=== PATIENT | female | born 1995 | race Asian ===

== ENCOUNTER 2016-10-17 10:28 | Outpatient (CLI) | payer MEDICAID ==
[~2016-10-17] VITALS: Ht 157.5 cm; Wt 73.6 kg
[~2016-10-17 10:28] MED LIST: ACET650S21 PO; DOCU-30 PO; IBUP-1222 PO; NORE0.354 PO; PREN1TAB69 PO
[2016-10-17 10:46] VITALS: BP 108/64
[2016-10-17 12:24] LABS: DAU SCREEN DISCLAIMER
== END 2016-10-17 12:20 | disposition home or self-care (01) ==
LOC: LDOP 10:28
PROVIDERS: ATTEND Student in an Organized Health Care Education/Training Program
DX: O26.893 Other specified pregnancy related conditions, third trimester (principal); O99.333 Smoking (tobacco) complicating pregnancy, third trimester; F17.200 Nicotine dependence, unspecified, uncomplicated; R10.9 Unspecified abdominal pain; Z3A.33 33 weeks gestation of pregnancy
CPT/HCPCS: 59025; 80307; 99201; 99211; G0463

== ENCOUNTER 2016-11-24 09:08 | Inpatient (IN) | payer MEDICAID ==
[~2016-11-24] VITALS: Ht 157.5 cm; Wt 74.1 kg
[~2016-11-24 09:08] MED LIST changes: +DOCU-131 PO; -DOCU-30 PO
[2016-11-24] MEDS ORDERED: NEWBORN KIT ONE (09:24)
[2016-11-24] MEDS ORDERED: FENTANYL PF 100 MCG/2ML ONE ×2 (09:25→10:42)
[2016-11-24] MEDS ORDERED: OXYTOCIN 30U/ 0.9% NaCL 500ML 500 ML ONE (09:25)
[2016-11-24] MEDS ORDERED: OXYTOCIN 30U/ 0.9% NaCL 500ML 500 ML IV ONE (09:34)
[2016-11-24] MEDS ORDERED: LACTATED RINGERS 1,000 ML IV SCH (09:34)
[2016-11-24] MEDS ORDERED: D5%-LACTATED RINGERS 1,000 ML IV SCH (09:34)
[2016-11-24 09:38] VITALS: BP 107/59
[2016-11-24] MEDS: FENTANYL PF 100 MCG/2ML IVPush PRN ×2 (09:53→10:49)
[2016-11-24] MEDS ORDERED: FENTANYL PF 100 MCG/2ML IV PRN (10:00)
[2016-11-24] MEDS ORDERED: ONDANSETRON 2MG/ML, 2ML IVPush PRN (10:00)
[2016-11-24 10:18] LABS: HEMATOCRIT 38.7 % (34.6-47.8); HEMOGLOBIN 12.8 g/dL (11.7-16.4); WHITE BLOOD COUNT 14.2 x10^3/uL (3.4-10)
[2016-11-24] MEDS ORDERED: PLEASE ENTER HEIGHT AND WEIGHT MC SCH (10:30)
[2016-11-24 12:59] LABS: HIV 1&2 ANTIBODY SCREEN Nonreactive (Nonreactive); HIV-1 p24 ANTIGEN Nonreactive (Nonreactive)
[2016-11-24] MEDS: OXYTOCIN 30U/ 0.9% NaCL 500ML 500 ML IV SCH ×4 (13:25→23:25)
[2016-11-24] MEDS ORDERED: OXYTOCIN 10 UNITS/ML, 1ML IM PRN (13:30)
[2016-11-24] MEDS ORDERED: METHYLERGONOVINE 0.2 MG/ML IM PRN (13:30)
[2016-11-24] MEDS ORDERED: ONDANSETRON 2MG/ML, 2ML IV PRN (13:30)
[2016-11-24] MEDS ORDERED: MISOPROSTOL 200 MCG TABLET PR PRN (13:30)
[2016-11-24] MEDS ORDERED: HYDROcodone/APAP 5/325 TABLET ONE (14:20)
[2016-11-24] MEDS: HYDROcodone/APAP 5/325 TABLET PO PRN ×2 (14:26→21:43)
[2016-11-24 15:00] VITALS: BP 115/65
[2016-11-24 19:54] LABS: HEMATOCRIT 35.4 % (34.6-47.8); HEMOGLOBIN 11.8 g/dL (11.7-16.4); WHITE BLOOD COUNT 15.5 x10^3/uL (3.4-10)
[2016-11-24 21:04] VITALS: BP 119/60
[2016-11-24] MEDS: DOCUSATE 100 MG CAPSULE PO PRN (21:43)
[2016-11-25 00:36] VITALS: BP 130/68
[2016-11-25 04:50] VITALS: BP 120/71
[2016-11-25 07:45] VITALS: BP 112/70
[2016-11-25] MEDS ORDERED: PRENATAL VIT/IRON/FA 1 EACH TABLET ONE (07:58)
[2016-11-25] MEDS: IBUPROFEN 600 MG TABLET PO PRN ×2 (08:05→16:23)
[2016-11-25] MEDS: HYDROcodone/APAP 5/325 TABLET PO PRN ×2 (08:05→16:23)
[2016-11-25] MEDS ORDERED: PRENATAL VIT/IRON/FA 1 EACH TABLET PO SCH (09:00)
[2016-11-25] MEDS: PRENATAL VIT/IRON/FA 1 EACH TABLET PO SCH (09:00)
[2016-11-25] MEDS: OXYTOCIN 30U/ 0.9% NaCL 500ML 500 ML IV SCH ×2 (09:25)
[2016-11-25 12:00] VITALS: BP 114/67
[2016-11-25 16:00] VITALS: BP 108/62
[2016-11-25 19:45] VITALS: BP 109/72
[2016-11-26] MEDS: HYDROcodone/APAP 5/325 TABLET PO PRN (06:29)
[2016-11-26] MEDS: IBUPROFEN 600 MG TABLET PO PRN (06:29)
[2016-11-26 07:35] VITALS: BP 107/69
[2016-11-26] MEDS: PRENATAL VIT/IRON/FA 1 EACH TABLET PO SCH (08:45)
[2016-11-26] MEDS: DOCUSATE 100 MG CAPSULE PO PRN (08:45)
== END 2016-11-26 16:06 | disposition home or self-care (01) | DRG 775 ==
LOC: LDOP 09:08 → LDIP 09:34 → 2NW 15:04
PROVIDERS: ADMIT Student in an Organized Health Care Education/Training Program; ATTEND Student in an Organized Health Care Education/Training Program
PROC: 10E0XZZ Delivery of Products of Conception, External Approach (ICD-10-PCS; principal; 2016-11-24)
DX: O80 Encounter for full-term uncomplicated delivery (principal); Z37.0 Single live birth; Z3A.39 39 weeks gestation of pregnancy
CPT/HCPCS: 36415; 85025; 86592; 86703; 86762; 86850; 86900; 87081; 87340; 87899; J3010; G0435; J2590

== ENCOUNTER 2017-06-22 13:50 | Emergency (ER) | payer MEDICAID ==
[~2017-06-22] VITALS: Ht 157.5 cm; Wt 88.3 kg
[~2017-06-22 13:50] MED LIST changes: +NORE0.3535 PO; -NORE0.354 PO
[2017-06-22 15:03] LABS: BASOPHILS # (AUTO) 0.04 x10^3/uL (0-0.1); BASOPHILS % (AUTO) 0 % (0-1); EOSINOPHILS # (AUTO) 0.25 x10^3/uL (0-0.4); EOSINOPHILS % (AUTO) 2 % (1-7); LYMPHOCYTES % (AUTO) 19 % (22-44); MD NO; MEAN CORPUSCULAR HEMOGLOBIN 30.2 pg (27.0-34.8); MEAN CORPUSCULAR HGB CONC 33.5 g/dL (32.4-35.8); MONOCYTES # (AUTO) 0.71 x10^3/uL (0.2-0.8); MONOCYTES % (AUTO) 5 % (2-9); NEUTROPHILS # (AUTO) 9.72 x10^3/uL (1.8-6.8); NEUTROPHILS % (AUTO) 74 % (42-75); PLATELET COUNT 178 x10^3/uL (130-400); RED BLOOD COUNT 4.89 x10^6/uL (3.82-5.3); RED CELL DISTRIBUTION WIDTH 13.4 % (9.6-15.2)
[2017-06-22 15:16] LABS: ALBUMIN 2.8 g/dL (3.4-5.0); ANION GAP 9 mmol/L (5-15); CALCIUM 8.7 mg/dL (8.5-10.1); CHLORIDE 109 mmol/L (98-107); CREATININE 0.56 mg/dL (0.55-1.02)
[2017-06-22 16:09] LABS: CULTURE INDICATED? YES; MICROSCOPIC INDICATED
[2017-06-22 17:01] VITALS: BP 123/64
== END 2017-06-22 17:03 | disposition home or self-care (01) ==
LOC: ED 16:54
DX: O26.892 Other specified pregnancy related conditions, second trimester (principal); R10.30 Lower abdominal pain, unspecified; R30.0 Dysuria; Z3A.14 14 weeks gestation of pregnancy
CPT/HCPCS: 36415; 76815; 80048; 81001; 82040; 84702; 85025; 86901; 87086; 99285

== ENCOUNTER 2017-10-29 07:00 | Inpatient (IN) | payer MEDICAID ==
[~2017-10-29] VITALS: Ht 157.5 cm; Wt 95.4 kg
[2017-10-29 07:09] VITALS: BP 127/61
[2017-10-29] MEDS ORDERED: D5%-LACTATED RINGERS 1,000 ML IV SCH (07:27)
[2017-10-29] MEDS ORDERED: AMPICILLIN 2 GM in SODIUM CHLORIDE 0.9% 100 ML IVPB STA (07:27)
[2017-10-29] MEDS ORDERED: OXYTOCIN 30U/ 0.9% NaCL 500ML 500 ML IV ONE (07:27)
[2017-10-29] MEDS ORDERED: LACTATED RINGERS 1,000 ML IV SCH (07:27)
[2017-10-29] MEDS ORDERED: ONDANSETRON 2MG/ML, 2ML IVPush PRN (07:30)
[2017-10-29] MEDS ORDERED: TERBUTALINE 1 MG/ML, 1ML IVPush PRN (07:30)
[2017-10-29] MEDS ORDERED: OXYTOCIN 30U/ 0.9% NaCL 500ML 500 ML ONE ×2 (07:39→14:56)
[2017-10-29] MEDS ORDERED: FENTANYL PF 100 MCG/2ML ONE ×5 (07:39→14:04)
[2017-10-29] MEDS ORDERED: NEWBORN KIT ONE (07:43)
[2017-10-29] MEDS: FENTANYL PF 100 MCG/2ML IVPush PRN ×3 (07:44→14:07)
[2017-10-29] MEDS ORDERED: MISOPROSTOL 200 MCG TABLET ONE (07:50)
[2017-10-29] MEDS ORDERED: LIDOCAINE/PF 1%, 30ML ONE (07:50)
[2017-10-29 07:55] LABS: AMPHETAMINE SCREEN, URINE Negative (Negative); BARBITURATE SCREEN, URINE Negative (Negative); BENZODIAZEPINE SCREEN, URINE Negative (Negative); CANNABINOID SCREEN, URINE Negative (Negative); COCAINE SCREEN, URINE Negative (Negative); METHADONE SCREEN, URINE Negative (Negative); OPIATE SCREEN, URINE Negative (Negative)
[2017-10-29 08:24] LABS: BASOPHILS # (AUTO) 0.04 x10^3/uL (0-0.1); BASOPHILS % (AUTO) 0 % (0-1); EOSINOPHILS # (AUTO) 0.14 x10^3/uL (0-0.4); EOSINOPHILS % (AUTO) 1 % (1-7); LYMPHOCYTES # (AUTO) 1.87 x10^3/uL (1-3.4); LYMPHOCYTES % (AUTO) 15 % (22-44); MD NO; MEAN CORPUSCULAR HEMOGLOBIN 28.3 pg (27.0-34.8); MEAN CORPUSCULAR HGB CONC 33.3 g/dL (32.4-35.8); MEAN CORPUSCULAR VOLUME 85.2 fL (80-100); MEAN PLATELET VOLUME 9.6 fL (7.4-10.4); MONOCYTES # (AUTO) 0.75 x10^3/uL (0.2-0.8); MONOCYTES % (AUTO) 6 % (2-9); NEUTROPHILS # (AUTO) 9.37 x10^3/uL (1.8-6.8); NEUTROPHILS % (AUTO) 77 % (42-75); PLATELET COUNT 166 x10^3/uL (130-400); RED BLOOD COUNT 4.36 x10^6/uL (3.82-5.3); RED CELL DISTRIBUTION WIDTH 14.3 % (9.6-15.2)
[2017-10-29] MEDS: FENTANYL PF 100 MCG/2ML IV PRN ×2 (09:30→10:02)
[2017-10-29] MEDS ORDERED: AMPICILLIN 1 GM in SODIUM CHLORIDE 0.9% 100 ML IVPB SCH (11:30)
[2017-10-29] MEDS ORDERED: OXYTOCIN 30U/ 0.9% NaCL 500ML 500 ML IV PRN (13:02)
[2017-10-29] MEDS ORDERED: OXYTOCIN 30U/ 0.9% NaCL 500ML 500 ML IV SCH (14:38)
[2017-10-29] MEDS ORDERED: IBUPROFEN 800 MG TABLET PO PRN (15:00)
[2017-10-29] MEDS ORDERED: DOCUSATE 100 MG CAPSULE PO PRN (15:00)
[2017-10-29] MEDS ORDERED: MISOPROSTOL 200 MCG TABLET PR PRN (15:00)
[2017-10-29] MEDS ORDERED: MAGNESIUM HYDROXIDE 8%, 30ML UDC PO PRN (15:00)
[2017-10-29] MEDS ORDERED: ONDANSETRON 2MG/ML, 2ML IV PRN (15:00)
[2017-10-29] MEDS ORDERED: OXYcodone/APAP 5/325MG TABLET PO PRN (15:00)
[2017-10-29] MEDS ORDERED: METHYLERGONOVINE 0.2 MG/ML IM PRN (15:00)
[2017-10-29] MEDS ORDERED: OXYTOCIN 10 UNITS/ML, 1ML IM PRN (15:00)
[2017-10-29] MEDS ORDERED: OXYcodone IR 5MG TABLET PO PRN (15:00)
[2017-10-29] MEDS ORDERED: ACETAMINOPHEN 325 MG TABLET PO PRN (15:00)
[2017-10-29] MEDS ORDERED: CALCIUM CARBONATE 500 MG TAB.CHEW PO PRN (15:00)
[2017-10-29] MEDS ORDERED: DIPH,PERTUSS(ACELL),TET VAC/PF NC IM-VACC PRN (15:00)
[2017-10-29] MEDS: OXYTOCIN 30U/ 0.9% NaCL 500ML 500 ML IV SCH (15:01)
[2017-10-29] MEDS ORDERED: IBUPROFEN 800 MG TABLET ONE (15:05)
[2017-10-29 16:40] VITALS: BP 112/64
[2017-10-29 19:25] VITALS: BP 133/78
[2017-10-29] MEDS ORDERED: NICOTINE 21 MG/24 HR PATCH.TD24 TD ONE (19:30)
[2017-10-30 00:03] VITALS: BP 125/85
[2017-10-30] MEDS: OXYTOCIN 30U/ 0.9% NaCL 500ML 500 ML IV SCH ×3 (00:38→20:38)
[2017-10-30 04:55] VITALS: BP 124/78
[2017-10-30] MEDS ORDERED: PRENATAL VIT/IRON/FA 1 EACH TABLET PO SCH (09:00)
[2017-10-30 09:35] VITALS: BP 109/70
[2017-10-30 19:45] VITALS: BP 122/74
[2017-10-31 08:00] VITALS: BP 124/82
[2017-10-31] MEDS ORDERED: OXYC-302 PO (09:41)
[2017-10-31] MEDS ORDERED: IBUP-1223 PO (09:43)
== END 2017-10-31 14:50 | disposition home or self-care (01) | DRG 775 ==
LOC: LDOP 07:00 → EDIP 07:34 → LDIP 07:44 → 2NW 16:20
PROVIDERS: ADMIT Obstetrics & Gynecology; ATTEND Obstetrics & Gynecology
PROC: 10E0XZZ Delivery of Products of Conception, External Approach (ICD-10-PCS; principal; 2017-10-31)
PROC: 10907ZC Drainage of Amniotic Fluid, Therapeutic from Products of Conception, Via Natural or Artificial Opening (ICD-10-PCS; 2017-10-31)
PROC: 10H07YZ Insertion of Other Device into Products of Conception, Via Natural or Artificial Opening (ICD-10-PCS; 2017-10-31)
DX: O77.0 Labor and delivery complicated by meconium in amniotic fluid (principal); Z37.0 Single live birth; Z3A.38 38 weeks gestation of pregnancy
CPT/HCPCS: 36415; 80307; 85025; 86592; 86762; 86803; 86850; 86900; 87340; 87806; G0378; J0290; J3010; G0475; J2590; J7120; J7121

== ENCOUNTER 2018-08-23 23:22 | Emergency (ER) | payer MEDICAID ==
[~2018-08-23] VITALS: Ht 157.5 cm; Wt 84.7 kg
[~2018-08-23 23:22] MED LIST changes: +IBUP-1223 PO; +OXYC-302 PO
[2018-08-24] MEDS ORDERED: KETOROLAC 30 MG/1 ML IM ONE (00:30)
[2018-08-24] MEDS ORDERED: METHOCARBAMOL 750 MG TABLET PO ONE (00:30)
[2018-08-24] MEDS ORDERED: KETOROLAC 30 MG/1 ML ONE (00:35)
[2018-08-24] MEDS ORDERED: METHOCARBAMOL 750 MG TABLET ONE (00:35)
[2018-08-24 00:51] LABS: MICROSCOPIC NOT IND
[2018-08-24 00:52] LABS: CULTURE INDICATED? NO
--- NOTE | 2018-08-24 01:32 | NUR ---
PT REPORTS THAT SHE IS FEELING BETTER AT THIS TIME. AWAIT RESULTS RADIOLOGY
--- NOTE | 2018-08-24 01:55 | NUR ---
Break RN: re-evaluation done. patient discharged with prescriptions and instruction. verbalized understanding.
[2018-08-24 01:56] VITALS: BP 123/67
== END 2018-08-24 01:58 | disposition home or self-care (01) ==
LOC: ED 08-24 00:01
DX: M54.5 Low back pain (principal); F17.200 Nicotine dependence, unspecified, uncomplicated
CPT/HCPCS: 72110; 81003; 81025; 96372; 99284; J1885

== ENCOUNTER 2018-12-20 15:35 | Emergency (ER) | payer MEDICAID ==
[~2018-12-20] VITALS: Ht 154.9 cm; Wt 86.2 kg
--- NOTE | 2018-12-20 16:57 | NUR ---
PT HERE TODAY FOR VAGINAL BLEEDING. STATES SHE IS 9 WEEKS 4 DAYS . STATES SHE WAS SEEN AT [facility] YESTERDAY AND EVERYTHING WITH THE LOOKED GOOD. PT STATES SHE IS HAVING CRAMPS IN HER BACK. STATES SHE HAS HAD LESS THAN ONE PAD OF BLOOD (HAS NOT SATURATED THIS PAD- BLEEDING HAS BEEN LIGHT.) PT HAS SO AT BEDSIDE. RESTING ON GURNEY. NADN. VSS. PROVIDED WITH BLANKET. DENIES NEEDS.
--- NOTE | 2018-12-20 18:25 | NUR ---
LAB AT BEDSIDE.
[2018-12-20 18:31] LABS: CULTURE INDICATED? YES; MICROSCOPIC INDICATED
--- NOTE | 2018-12-20 18:53 | NUR ---
REPORT TO BEN TREVINO
[2018-12-20 19:59] VITALS: BP 109/58
== END 2018-12-20 20:02 | disposition home or self-care (01) ==
LOC: ED 18:36
DX: O20.0 Threatened abortion (principal)
CPT/HCPCS: 36415; 81001; 84702; 86901; 87086; 99283